=== PATIENT | female | born 1965 | race Caucasian/White ===

== ENCOUNTER → 2016-03-10 | Outpatient (CLI) | payer BC ==
[~2016-03-10] MED LIST: NORE0.35 PO; THYR60TA PO
[2016-03-10 09:06] LABS: Urine RBC None Seen /hpf (0 - 4)
[2016-03-10 09:52] LABS: Urine Bilirubin Negative (Negative); Urine Blood TRACE /uL (Negative); Urine Color Yellow (Yellow); Urine Glucose Normal (Normal); Urine Ketone Negative (Negative); Urine Nitrite Negative (Negative); Urine Squamous Epithelial Cell MANY /hpf (<5); Urine Urobilinogen Normal (Negative); Urine pH 6.5 (5.0-8.0)
[2016-03-10 10:19] LABS: BUN/Creatinine Ratio 12.3
[2016-03-10 10:38] LABS: Potassium 3.7 mmol/L (3.5-5.1)
[2016-03-10 12:45] LABS: Temperature: 22.3 C (20.0-25.0)
== END | disposition home or self-care (01) ==
LOC: LAB 06:37
PROVIDERS: ATTEND Internal Medicine
DX: E03.9 Hypothyroidism, unspecified (principal); E66.9 Obesity, unspecified; Z13.1 Encounter for screening for diabetes mellitus
CPT/HCPCS: 36415; 80048; 80061; 81001; 82607; 82746; 83036; 84439; 84443

== ENCOUNTER → 2016-03-10 | Outpatient (CLI) | payer BC | END | disposition home or self-care (01) | LOC: LAB 15:01 | PROVIDERS: ATTEND Internal Medicine | DX: E03.9 Hypothyroidism, unspecified (principal); E55.9 Vitamin D deficiency, unspecified | CPT/HCPCS: 82306 ==

== ENCOUNTER 2016-05-24 06:09 | Inpatient (IN) | payer BC ==
[2016-05-20 10:18] LABS: Urine Bilirubin Negative (Negative); Urine Blood TRACE /uL (Negative); Urine Color Yellow (Yellow); Urine Glucose Normal (Normal); Urine Ketone Negative (Negative); Urine Nitrite Negative (Negative); Urine RBC 24 /hpf (0 - 4); Urine Squamous Epithelial Cell MOD /hpf (<5); Urine Urobilinogen Normal (Negative)
[2016-05-20 10:28] LABS: INR 0.99 (0.9-1.15); Partial Thromboplastin Time 25.9 sec (22.64-33.71); Prothrombin Time 10.7 sec (9.37-12.3)
[2016-05-20 10:34] LABS: Basophils # (auto) 0 uL; Basophils % (auto) 0.6 % (0.0-2.0); Eosinophils # (auto) 0.2 uL; Eosinophils % (auto) 3.6 % (0.0-7.0); Hematocrit 45.4 % (36.0-46.0); Hemoglobin 15.8 g/dL (12.2-16.2); Lymphocytes # (auto) 1.6 uL; Lymphocytes % (auto) 31.4 % (10.0-50.0); Mean Corpuscular Hemoglobin 35.3 pg (28.0-32.0); Mean Corpuscular Hgb Conc. 34.8 g/dL (32.0-36.0); Mean Corpuscular Volume 101.5 fL (80.0-100.0); Monocytes # (auto) 0.5 uL; Monocytes % (auto) 10.3 % (0.0-12.0); Neutrophils # (auto) 2.8 uL; Neutrophils % (auto) 54.1 % (37.0-80.0); Platelet Count (auto) 291 10^3/uL (140-450); Red Cell Distribution Width 12.5 % (11.6-16.0); White Blood Cell 5.2 10^3/uL (4.4-10.8)
[2016-05-20 10:42] LABS: Albumin 3.5 g/dL (3.4-5.0); BUN/Creatinine Ratio 13.2; Bilirubin, Total 0.9 mg/dL (0.2-1.0); Calcium 8.7 mg/dL (8.5-10.1); Potassium 3.8 mmol/L (3.5-5.1); Total Protein 7.2 g/dL (6.4-8.2)
[~2016-05-24] VITALS: Ht 162.6 cm; Wt 112.4 kg
[2016-05-24] MEDS ORDERED: ROPIVACAINE 0.5% (5MG/ML) 20ML AMPULE IJ ONE (06:41)
[2016-05-24] MEDS ORDERED: BUPIVACAINE 0.25% INJ 50ML VIAL ONE (06:41)
[2016-05-24] MEDS ORDERED: BUPIVACAINE W/ EPINEPH 0.25% INJ 50ML MDV ONE (06:41)
[2016-05-24] MEDS ORDERED: ceFAZolin 1GM/50ML D5W 100 ML IV ONE (06:41)
[2016-05-24] MEDS ORDERED: ROCURONIUM 10MG/ML 10ML VIAL IV ONE (07:23)
[2016-05-24] MEDS ORDERED: cefTRIAXone SOD 1,000 MG VL ONE (07:31)
[2016-05-24] MEDS ORDERED: SUCCINYLCHOLINE CHLORIDE 20 MG/ML 10ML VIAL IV ONE (07:41)
[2016-05-24] MEDS ORDERED: fentaNYL CITRATE 100 MCG/2 ML VL ONE ×2 (07:42→08:46)
[2016-05-24] MEDS ORDERED: PROPOFOL 10 MG/ML 20 ML IV ONE (07:43)
[2016-05-24] MEDS ORDERED: KETOROLAC TROMETH 30 MG/ML 1ML VIAL IV ONE (07:43)
[2016-05-24] MEDS ORDERED: NEOSTIGMINE 1 MG/ML INJ (10mg/10ML VIAL) IV ONE (07:43)
[2016-05-24] MEDS ORDERED: GLYCOPYRROLATE 0.2 MG/ML 1ML VIAL IV ONE (07:43)
[2016-05-24] MEDS ORDERED: MIDAZOLAM HCL 1MG/1ML-2 ML VIAL ONE (07:45)
[2016-05-24] MEDS ORDERED: HYDROmorphone HCL 2 MG/ML VL ONE (08:46)
[2016-05-24] MEDS ORDERED: ePHEDrine SULFATE 50 MG/ML AMP IV PRN (10:45)
[2016-05-24] MEDS ORDERED: ONDANSETRON HCL 4 MG/2 ML VIAL IV ONE (10:45)
[2016-05-24] MEDS ORDERED: hydrALAZINE HCL 20 MG/ML VL IV PRN (10:45)
[2016-05-24] MEDS: LACTATED RINGER'S 1,000 ML IV SCH (10:47)
[2016-05-24] MEDS: HYDROmorphone HCL 2 MG/ML VL IV PRN ×5 (10:53→18:36)
[2016-05-24] MEDS ORDERED: MEPERIDINE HCL (25 MG/ML) 1ML VIAL ONE (10:55)
[2016-05-24] MEDS ORDERED: MEPERIDINE HCL (25 MG/ML) 1ML VIAL IV ONE (11:00)
[2016-05-24] MEDS ORDERED: HYDROmorphone HCL 2 MG/ML VL IV PRN (11:00)
[2016-05-24] MEDS ORDERED: TEMAZEPAM 15 MG CAP PO PRN (11:00)
[2016-05-24] MEDS ORDERED: ceFAZolin 1GM/50ML D5W 50 ML IV SCH (12:00)
[2016-05-24] MEDS: SODIUM CHLOR 0.9% PF (SALINE LOCK) 10ML VIAL IV SCH ×2 (14:00→21:38)
[2016-05-24] MEDS ORDERED: cefTRIAXone 1GM/50ML D5W 50 ML IV ONE (14:15)
[2016-05-24 14:16] VITALS: BP 132/83
[2016-05-24] MEDS ORDERED: oxyCODONE ER 10 MG TAB PO ONE (14:30)
[2016-05-24] MEDS ORDERED: ENOXAPARIN SOD 40 MG/0.4 ML SYRINGE SC ONE (14:30)
[2016-05-24] MEDS: ceFAZolin 1GM/50ML D5W 50 ML IV SCH ×2 (15:08→21:38)
[2016-05-24 21:35] VITALS: BP 137/70
[2016-05-24] MEDS: DOCUSATE SOD 100 MG CAP PO SCH (21:39)
[2016-05-24] MEDS: oxyCODONE ER 10 MG TAB PO SCH (21:39)
[2016-05-24] MEDS: ONDANSETRON HCL 4 MG/2 ML VIAL IV PRN (22:17)
[2016-05-25] MEDS: ceFAZolin 1GM/50ML D5W 50 ML IV SCH (02:34)
[2016-05-25] MEDS: ACETAMINOPHEN 325 MG TAB PO PRN (02:35)
[2016-05-25 04:35] VITALS: BP 124/71
[2016-05-25] MEDS: HYDROmorphone HCL 2 MG/ML VL IV PRN ×4 (05:15→21:00)
[2016-05-25] MEDS: SODIUM CHLOR 0.9% PF (SALINE LOCK) 10ML VIAL IV SCH ×3 (06:05→21:22)
[2016-05-25 07:50] LABS: Hematocrit 38.4 % (36.0-46.0)
[2016-05-25 09:00] VITALS: BP 118/69
[2016-05-25] MEDS: LACTATED RINGER'S 1,000 ML IV SCH (09:19)
[2016-05-25] MEDS: cefTRIAXone 1GM/50ML D5W 50 ML IV SCH (09:20)
[2016-05-25] MEDS: HYDROcodone-ACET 10/325MG TAB PO PRN ×2 (09:20→17:48)
[2016-05-25] MEDS: oxyCODONE ER 10 MG TAB PO SCH ×2 (10:00→21:22)
[2016-05-25] MEDS: DOCUSATE SOD 100 MG CAP PO SCH ×2 (10:14→21:22)
[2016-05-25] MEDS: THYROID 60 MG TAB PO SCH (10:14)
[2016-05-25] MEDS: ENOXAPARIN SOD 40 MG/0.4 ML SYRINGE SC SCH (10:16)
[2016-05-25 17:00] VITALS: BP 144/81
[2016-05-25 22:00] VITALS: BP 147/75
[2016-05-26] MEDS: HYDROmorphone HCL 2 MG/ML VL IV PRN ×6 (01:37→21:21)
[2016-05-26] MEDS: ACETAMINOPHEN 325 MG TAB PO PRN ×3 (04:59→20:31)
[2016-05-26 05:00] VITALS: BP 113/65
[2016-05-26] MEDS: SODIUM CHLOR 0.9% PF (SALINE LOCK) 10ML VIAL IV SCH ×3 (05:16→21:21)
[2016-05-26 07:39] LABS: Hematocrit 39.2 % (36.0-46.0); Hemoglobin 13.4 g/dL (12.2-16.2)
[2016-05-26 08:00] VITALS: BP 133/70
[2016-05-26] MEDS: ONDANSETRON HCL 4 MG/2 ML VIAL IV PRN (08:44)
[2016-05-26 09:00] VITALS: BP 133/70
[2016-05-26] MEDS: ENOXAPARIN SOD 40 MG/0.4 ML SYRINGE SC SCH (09:26)
[2016-05-26] MEDS: DOCUSATE SOD 100 MG CAP PO SCH ×2 (09:26→21:21)
[2016-05-26] MEDS: THYROID 60 MG TAB PO SCH (09:26)
[2016-05-26] MEDS: cefTRIAXone 1GM/50ML D5W 50 ML IV SCH (09:26)
[2016-05-26] MEDS: oxyCODONE ER 10 MG TAB PO SCH ×2 (09:26→21:24)
[2016-05-26 13:00] VITALS: BP 137/74
[2016-05-26 17:00] VITALS: BP 138/86
[2016-05-26 22:11] VITALS: BP 124/72
[2016-05-27] MEDS: ACETAMINOPHEN 325 MG TAB PO PRN (04:31)
[2016-05-27 05:00] VITALS: BP 131/77
[2016-05-27] MEDS: SODIUM CHLOR 0.9% PF (SALINE LOCK) 10ML VIAL IV SCH ×2 (06:04→14:00)
[2016-05-27] MEDS: HYDROmorphone HCL 2 MG/ML VL IV PRN ×3 (06:04→15:27)
[2016-05-27 08:00] VITALS: BP 129/65
[2016-05-27 09:00] VITALS: BP 129/65
[2016-05-27 09:13] LABS: Hematocrit 35.4 % (36.0-46.0); Hemoglobin 12.2 g/dL (12.2-16.2)
[2016-05-27] MEDS: ENOXAPARIN SOD 40 MG/0.4 ML SYRINGE SC SCH (09:21)
[2016-05-27] MEDS: cefTRIAXone 1GM/50ML D5W 50 ML IV SCH (09:21)
[2016-05-27] MEDS: DOCUSATE SOD 100 MG CAP PO SCH (09:21)
[2016-05-27] MEDS: THYROID 60 MG TAB PO SCH (09:21)
[2016-05-27] MEDS: oxyCODONE ER 10 MG TAB PO SCH (09:22)
[2016-05-27 13:00] VITALS: BP 141/87
[2016-05-27 14:20] VITALS: BP 129/65
== END 2016-05-27 16:45 | disposition home or self-care (01) | DRG 470 ==
LOC: SUR 06:09 → WEST WING 06:10
PROVIDERS: ADMIT Orthopaedic Surgery; ATTEND Internal Medicine
PROC: 0SRC0L9 Replacement of Right Knee Joint with Medial Unicondylar Synthetic Substitute, Cemented, Open Approach (ICD-10-PCS; principal; 2016-05-24 07:43)
DX: M17.11 Unilateral primary osteoarthritis, right knee (principal); N39.0 Urinary tract infection, site not specified; Z68.41 Body mass index [BMI] 40.0-44.9, adult; E03.9 Hypothyroidism, unspecified; E66.9 Obesity, unspecified; Z88.1 Allergy status to other antibiotic agents; Z88.2 Allergy status to sulfonamides
CPT/HCPCS: 36415; 73562; 80053; 81001; 84702; 85014; 85018; 85025; 85610; 85730; 86850; 86900; 86901; 97116; 97530; J0330; J0690; J0696; J1885; J2250; J2405; J2704; J3490

== ENCOUNTER → 2016-11-04 | Outpatient (CLI) | payer BC ==
[2016-11-04 08:40] LABS: Aspartate Aminotransferase 33 U/L (15-37)
[2016-11-04 09:35] LABS: Urine Bilirubin Negative (Negative); Urine Blood Negative /uL (Negative); Urine Color Yellow (Yellow); Urine Glucose Normal (Normal); Urine Ketone Negative (Negative); Urine Mucus FEW (None Seen); Urine Nitrite Negative (Negative); Urine RBC 4 /hpf (0 - 4); Urine Sperm PRESENT /hpf (None Seen); Urine Squamous Epithelial Cell MOD /hpf (<5); Urine Urobilinogen Normal (Negative); Urine pH 6.5 (5.0-8.0)
[2016-11-05 08:07] LABS: Thyroid Peroxidase (TPO) Ab 9 IU/mL (0-34)
[2016-11-05 16:07] LABS: Sjogren's Anti-SS-A Antibody <0.2 AI (0.0-0.9)
== END | disposition home or self-care (01) ==
LOC: LAB 07:54
PROVIDERS: ATTEND Internal Medicine
DX: E03.9 Hypothyroidism, unspecified (principal); M25.50 Pain in unspecified joint
CPT/HCPCS: 36415; 81001; 82550; 84439; 84443; 84450; 84460; 86225; 86235

== ENCOUNTER → 2017-05-02 | Outpatient (CLI) | payer BC ==
[2017-05-02 16:50] LABS: Eosinophils # (auto) 0.2 uL; Lymphocytes # (auto) 1.5 uL; Monocytes # (auto) 0.6 uL; Red Cell Distribution Width 12.8 % (11.8-14.3)
[2017-05-02 16:57] LABS: Basophils # (auto) 0.1 uL; Basophils % (auto) 1.8 % (0.0-2.0); Hematocrit 44.4 % (36.0-46.0); Hemoglobin 15.4 g/dL (12.2-16.2); Lymphocytes % (auto) 30.3 % (10.0-50.0); Mean Corpuscular Hemoglobin 35.8 pg (28.0-32.0); Mean Corpuscular Hgb Conc. 34.5 g/dL (32.0-36.0); Mean Corpuscular Volume 103.7 fL (80.0-100.0); Monocytes % (auto) 11.6 % (0.0-12.0); Neutrophils # (auto) 2.6 uL; Neutrophils % (auto) 52.3 % (37.0-80.0); Nucleated Red Blood Cells % 0.2 %; Platelet Count (auto) 234 10^3/uL (140-450); Red Blood Cells 4.28 10^6/uL (4.0-5.20)
[2017-05-02 17:43] LABS: INR 1.01 (0.9-1.15); Partial Thromboplastin Time 26.6 sec (22.64-33.71)
[2017-05-02 18:15] LABS: Albumin 3.4 g/dL (3.4-5.0); BUN/Creatinine Ratio 13.2; Calcium 8.6 mg/dL (8.5-10.1); Potassium 3.9 mmol/L (3.5-5.1)
[2017-05-02 18:19] LABS: Bilirubin, Total 0.9 mg/dL (0.2-1.0); Total Protein 6.9 g/dL (6.4-8.2)
== END | disposition home or self-care (01) ==
LOC: LAB 15:49
PROVIDERS: ATTEND Internal Medicine
DX: L73.9 Follicular disorder, unspecified (principal); E03.9 Hypothyroidism, unspecified
CPT/HCPCS: 36415; 80053; 84439; 84443; 85025; 85610; 85652; 85730; 87081

== ENCOUNTER 2017-09-01 09:31 | Day surgery (SDC) | payer BC ==
[2017-08-28 15:02] LABS: Basophils # (auto) 0.1 uL; Basophils % (auto) 1.1 % (0.0-2.0); Eosinophils # (auto) 0.2 uL; Eosinophils % (auto) 4.5 % (0.0-7.0); Hematocrit 45.3 % (36.0-46.0); Hemoglobin 15.8 g/dL (12.2-16.2); Lymphocytes # (auto) 1.8 uL; Lymphocytes % (auto) 36.8 % (10.0-50.0); Mean Corpuscular Hemoglobin 36.1 pg (28.0-32.0); Mean Corpuscular Hgb Conc. 34.8 g/dL (32.0-36.0); Mean Corpuscular Volume 103.6 fL (80.0-100.0); Monocytes # (auto) 0.6 uL; Monocytes % (auto) 11.4 % (0.0-12.0); Neutrophils # (auto) 2.3 uL; Neutrophils % (auto) 46.2 % (37.0-80.0); Platelet Count (auto) 227 10^3/uL (140-450); Red Blood Cells 4.37 10^6/uL (4.0-5.20); Red Cell Distribution Width 13.2 % (11.8-14.3)
[2017-08-28 15:14] LABS: Urine Bacteria FEW /hpf (None Seen); Urine Blood Negative /uL (Negative); Urine Specific Gravity 1.009 (1.001-1.035); Urine WBC 34 /hpf (0 - 5)
[2017-08-28 15:24] LABS: INR 0.99 (0.9-1.15); Partial Thromboplastin Time 26.6 sec (23.78-33.04); Prothrombin Time 10.6 sec (9.27-12.13)
[2017-08-28 15:30] LABS: Albumin 3.5 g/dL (3.4-5.0); BUN/Creatinine Ratio 14.1; Bilirubin, Total 0.8 mg/dL (0.2-1.0); Calcium 8.6 mg/dL (8.5-10.1); Potassium 3.5 mmol/L (3.5-5.1); Total Protein 7.3 g/dL (6.4-8.2)
[~2017-09-01] VITALS: Ht 160 cm; Wt 95.3 kg
[2017-09-01] MEDS ORDERED: MEPERIDINE HCL (50 MG/ML) 1 ML VIAL IV ONE (09:32)
[2017-09-01] MEDS ORDERED: PROPOFOL 10 MG/ML 20 ML IV ONE (09:32)
[2017-09-01] MEDS ORDERED: KETOROLAC TROMETH 30 MG/ML 1ML VIAL IV ONE (09:32)
[2017-09-01] MEDS ORDERED: MIDAZOLAM HCL 1MG/1ML-2 ML VIAL IV ONE (09:32)
[2017-09-01] MEDS ORDERED: ceFAZolin 1 GM/50ml D5W BAG /AE IV ONE (09:32)
[2017-09-01] MEDS ORDERED: METOCLOPRAMIDE HCL 5MG/ml INJ 2ml VIAL IV ONE ×2 (09:32)
[2017-09-01] MEDS ORDERED: ceFAZolin 1GM/50ML 50 ML IV ONE (10:34)
[2017-09-01] MEDS ORDERED: BUPIVACAINE W/ EPINEPH 0.25% INJ 50ML MDV ONE (12:50)
[2017-09-01] MEDS ORDERED: BUPIVACAINE HCL 0 ML ONE (12:50)
[2017-09-01] MEDS ORDERED: MEPERIDINE HCL (25 MG/ML) 1ML VIAL ONE (14:39)
[2017-09-01] MEDS ORDERED: MEPERIDINE HCL (25 MG/ML) 1ML VIAL IV ONE (14:45)
[2017-09-01 15:15] VITALS: BP 133/77
== END 2017-09-01 15:15 | disposition home or self-care (01) ==
LOC: SUR 09:31
PROVIDERS: ATTEND Orthopaedic Surgery
DX: R22.41 Localized swelling, mass and lump, right lower limb (principal); E03.9 Hypothyroidism, unspecified; E66.01 Morbid (severe) obesity due to excess calories; Z68.37 Body mass index [BMI] 37.0-37.9, adult; Z96.651 Presence of right artificial knee joint; Z98.890 Other specified postprocedural states; Z88.2 Allergy status to sulfonamides; Z88.8 Allergy status to other drugs, medicaments and biological substances
CPT/HCPCS: 27337; 36415; 80053; 81001; 84702; 85025; 85610; 85730; 87070; 87075; 87205; J0690; J2175; J1885; J2250; J2704; J3490

== ENCOUNTER → 2017-10-11 | Outpatient (CLI) | payer BC ==
[2017-10-11 08:59] LABS: Basophils # (auto) 0.1 uL; Basophils % (auto) 1.1 % (0.0-2.0); Eosinophils # (auto) 0.2 uL; Lymphocytes # (auto) 1.8 uL; Monocytes # (auto) 0.6 uL; Neutrophils # (auto) 2.5 uL; Neutrophils % (auto) 48.9 % (37.0-80.0); Nucleated Red Blood Cells % 0.1 %; Red Blood Cells 4.73 10^6/uL (4.0-5.20)
[2017-10-11 09:00] LABS: Eosinophils % (auto) 4.4 % (0.0-7.0); Hematocrit 48.5 % (36.0-46.0); Hemoglobin 16.9 g/dL (12.2-16.2); Mean Corpuscular Hemoglobin 35.8 pg (28.0-32.0); Mean Corpuscular Hgb Conc. 34.9 g/dL (32.0-36.0); Mean Corpuscular Volume 102.5 fL (80.0-100.0); Monocytes % (auto) 10.6 % (0.0-12.0); Platelet Count (auto) 256 10^3/uL (140-450); Red Cell Distribution Width 12.9 % (11.8-14.3); White Blood Cell 5.2 10^3/uL (4.4-10.8)
[2017-10-11 09:14] LABS: INR 0.99 (0.9-1.15); Prothrombin Time 10.6 sec (9.27-12.13)
[2017-10-11 09:23] LABS: % Iron Saturation 39.8 % (15-50)
[2017-10-11 09:25] LABS: Albumin 3.6 g/dL (3.4-5.0); Calcium 8.7 mg/dL (8.5-10.1); Potassium 3.5 mmol/L (3.5-5.1); Total Protein 7.6 g/dL (6.4-8.2)
[2017-10-11 09:28] LABS: Free T4 (Free Thyroxine) 0.64 ng/dL (0.89-1.76)
[2017-10-11 09:29] LABS: Ferritin 116.2 ng/mL (10-322); Follicle Stimulating Hormone 13.04 IU/L (SEE BELOW)
[2017-10-12 10:03] LABS: Hepatitis B Surface Antibody Negative
[2017-10-12 10:10] LABS: Immunoglobulin G, Serum 1172 mg/dL (700-1600)
[2017-10-12 10:39] LABS: Hepatitis A Total Antibody Negative
[2017-10-12 11:37] LABS: Hepatitis B Surface Antigen Negative (Negative); Hepatitis C Antibody Negative (Negative)
== END | disposition home or self-care (01) ==
LOC: LAB 07:11
PROVIDERS: ATTEND Internal Medicine
DX: E66.9 Obesity, unspecified (principal); R74.8 Abnormal levels of other serum enzymes; R21 Rash and other nonspecific skin eruption; E03.9 Hypothyroidism, unspecified
CPT/HCPCS: 36415; 80053; 80061; 82105; 82390; 82550; 82607; 82728; 82784; 83001; 83540; 83550; 84439; 84443; 85025; 85610; 86038; 86706; 86708; 86803; 87340

== ENCOUNTER 2017-10-16 08:10 | Emergency (ER) | payer BC, OTHER ==
[~2017-10-16] VITALS: Ht 160 cm; Wt 94.3 kg
[2017-10-16 09:05] VITALS: BP 156/95
[2017-10-16] MEDS ORDERED: KETOROLAC TROMETH 60MG/2ML VIAL IM ONE (10:15)
== END 2017-10-16 11:16 | disposition home or self-care (01) ==
LOC: ER 08:10
DX: S83.92XA Sprain of unspecified site of left knee, initial encounter (principal); Z88.1 Allergy status to other antibiotic agents; Z88.2 Allergy status to sulfonamides; Z87.440 Personal history of urinary (tract) infections; X58.XXXA Exposure to other specified factors, initial encounter; Y93.89 Activity, other specified; Y92.89 Other specified places as the place of occurrence of the external cause; Y99.8 Other external cause status
CPT/HCPCS: 73700; 96372; 99284; J1885

== ENCOUNTER → 2018-03-20 | Outpatient (CLI) | payer BC ==
[2018-03-20 07:28] LABS: Basophils # (auto) 0 uL; Eosinophils # (auto) 0.2 uL; Monocytes # (auto) 0.5 uL; Monocytes % (auto) 10.3 % (0.0-12.0)
[2018-03-20 07:30] LABS: Eosinophils % (auto) 5.4 % (0.0-7.0); Hematocrit 45.3 % (36.0-46.0); Lymphocytes # (auto) 1.7 uL; Mean Corpuscular Hemoglobin 36.4 pg (28.0-32.0); Mean Corpuscular Hgb Conc. 35.3 g/dL (32.0-36.0); Mean Corpuscular Volume 103.1 fL (80.0-100.0); Neutrophils % (auto) 45.3 % (37.0-80.0); Platelet Count (auto) 230 10^3/uL (140-450); Red Blood Cells 4.39 10^6/uL (4.0-5.20); Red Cell Distribution Width 12.9 % (11.8-14.3); White Blood Cell 4.5 10^3/uL (4.4-10.8)
[2018-03-20 07:39] LABS: Urine Bacteria FEW /hpf (None Seen); Urine Blood Negative /uL (Negative); Urine Mucus FEW (None Seen); Urine Specific Gravity 1.009 (1.001-1.035); Urine WBC 37 /hpf (0 - 5)
[2018-03-20 07:45] LABS: Albumin 3.3 g/dL (3.4-5.0); Calcium 8.2 mg/dL (8.5-10.1); Potassium 3.6 mmol/L (3.5-5.1)
[2018-03-20 07:48] LABS: BUN/Creatinine Ratio 8.2; Bilirubin, Total 0.6 mg/dL (0.2-1.0); Total Protein 6.7 g/dL (6.4-8.2)
[2018-03-20 08:03] LABS: INR 0.97 (0.9-1.15); Partial Thromboplastin Time 25.6 sec (23.78-33.04); Prothrombin Time 10.4 sec (9.27-12.13)
== END | disposition home or self-care (01) ==
LOC: LAB 07:18
PROVIDERS: ATTEND Internal Medicine
DX: Z01.818 Encounter for other preprocedural examination (principal)
CPT/HCPCS: 36415; 80053; 81001; 84439; 84443; 85025; 85610; 85730

== ENCOUNTER → 2018-03-26 | Day surgery (SDC) | payer OTHER ==
[~2018-03-26] VITALS: Ht 160 cm; Wt 96.2 kg
[~2018-03-26] MED LIST changes: +BUPIVACAINE 0.25% INJ 50ML VIAL ONE; +GLYCOPYRROLATE 0.2 MG/ML 1ML VIAL ONE; +HYDROmorphone HCL 2 MG/ML VL IV PRN; +KETOROLAC TROMETH 30 MG/ML 1ML VIAL ONE; +LIDOCAINE 1% HCL (LOCAL ANESTH.) INJ 20ML MDV ONE; +LIDOCAINE 1% INJ PF 5ML AMP ONE; +MEPERIDINE HCL (25 MG/ML) 1ML VIAL IM ONE; +MEPERIDINE HCL (25 MG/ML) 1ML VIAL ONE; +METOCLOPRAMIDE HCL 5MG/ml INJ 2ml VIAL ONE; +MIDAZOLAM HCL 1MG/1ML-2 ML VIAL ONE; +NALOXONE HCL 0.4 MG/ML VIAL IV PRN; +NEOSTIGMINE 1 MG/ML INJ (10mg/10ML VIAL) ONE; +ONDANSETRON HCL 4 MG/2 ML VIAL IV ONE; +PROPOFOL 10 MG/ML 20 ML IV ONE; +ROCURONIUM 10MG/ML 10ML VIAL IV ONE; +SUCCINYLCHOLINE CHLORIDE 20 MG/ML 10ML VIAL IV ONE; +ceFAZolin 1GM/50ML 100 ML IV ONE; +fentaNYL CITRATE 100 MCG/2 ML VL ONE; +methylPREDNISolone ACETATE 80 MG/ML VL ONE
[2018-03-26 08:56] VITALS: BP 133/77
== END | disposition home or self-care (01) ==
LOC: SUR 06:12
PROVIDERS: ATTEND Orthopaedic Surgery Adult Reconstructive Orthopaedic Surgery
DX: S83.242A Other tear of medial meniscus, current injury, left knee, initial encounter (principal); M17.12 Unilateral primary osteoarthritis, left knee; E66.9 Obesity, unspecified; Z68.37 Body mass index [BMI] 37.0-37.9, adult; Z88.1 Allergy status to other antibiotic agents; Z88.2 Allergy status to sulfonamides; Z90.49 Acquired absence of other specified parts of digestive tract; Z96.652 Presence of left artificial knee joint; X58.XXXA Exposure to other specified factors, initial encounter; Y93.89 Activity, other specified; Y92.89 Other specified places as the place of occurrence of the external cause; Y99.8 Other external cause status
CPT/HCPCS: 29881; 36415; 84702; J0330; J0690; J1040; J1885; J2001; J2175; J2250; J2704; J2765; J3010; J3490

== ENCOUNTER → 2019-01-24 | Outpatient (CLI) | payer BC ==
[~2019-01-24] MED LIST changes: -BUPIVACAINE 0.25% INJ 50ML VIAL ONE; -GLYCOPYRROLATE 0.2 MG/ML 1ML VIAL ONE; -HYDROmorphone HCL 2 MG/ML VL IV PRN; -KETOROLAC TROMETH 30 MG/ML 1ML VIAL ONE; -LIDOCAINE 1% HCL (LOCAL ANESTH.) INJ 20ML MDV ONE; -LIDOCAINE 1% INJ PF 5ML AMP ONE; -MEPERIDINE HCL (25 MG/ML) 1ML VIAL IM ONE; -MEPERIDINE HCL (25 MG/ML) 1ML VIAL ONE; -METOCLOPRAMIDE HCL 5MG/ml INJ 2ml VIAL ONE; -MIDAZOLAM HCL 1MG/1ML-2 ML VIAL ONE; -NALOXONE HCL 0.4 MG/ML VIAL IV PRN; -NEOSTIGMINE 1 MG/ML INJ (10mg/10ML VIAL) ONE; -ONDANSETRON HCL 4 MG/2 ML VIAL IV ONE; -PROPOFOL 10 MG/ML 20 ML IV ONE; -ROCURONIUM 10MG/ML 10ML VIAL IV ONE; -SUCCINYLCHOLINE CHLORIDE 20 MG/ML 10ML VIAL IV ONE; -ceFAZolin 1GM/50ML 100 ML IV ONE; -fentaNYL CITRATE 100 MCG/2 ML VL ONE; -methylPREDNISolone ACETATE 80 MG/ML VL ONE
[2019-01-24 08:27] LABS: Follicle Stimulating Hormone 13.3 IU/L (SEE BELOW)
== END | disposition home or self-care (01) ==
LOC: LAB 07:23
DX: N95.1 Menopausal and female climacteric states (principal)
CPT/HCPCS: 82670; 83001; 83002; 84144

== ENCOUNTER 2019-02-14 08:24 | Emergency (ER) | payer BC ==
[~2019-02-14] VITALS: Ht 160 cm; Wt 92.1 kg
[2019-02-14 08:50] VITALS: BP 111/61
[2019-02-14 08:54] LABS: Basophils # (auto) 0.1 uL; Eosinophils # (auto) 0.1 uL; Monocytes # (auto) 0.4 uL; Neutrophils # (auto) 1.2 uL; Nucleated Red Blood Cells % 0.2 %; White Blood Cell 2.7 10^3/uL (4.4-10.8)
[2019-02-14 08:55] LABS: Basophils % (auto) 2.6 % (0.0-2.0); Eosinophils % (auto) 3.1 % (0.0-7.0); Hematocrit 44.3 % (36.0-46.0); Hemoglobin 15.3 g/dL (12.2-16.2); Lymphocytes # (auto) 0.9 uL; Lymphocytes % (auto) 34.3 % (10.0-50.0); Mean Corpuscular Hemoglobin 35.8 pg (28.0-32.0); Mean Corpuscular Hgb Conc. 34.6 g/dL (32.0-36.0); Mean Corpuscular Volume 103.5 fL (80.0-100.0); Monocytes % (auto) 14.5 % (0.0-12.0); Neutrophils % (auto) 45.5 % (37.0-80.0); Platelet Count (auto) 189 10^3/uL (140-450); Red Blood Cells 4.28 10^6/uL (4.0-5.20); Red Cell Distribution Width 12.5 % (11.8-14.3)
[2019-02-14 09:10] LABS: Albumin 2.9 g/dL (3.4-5.0); Calcium 8.4 mg/dL (8.5-10.1); Potassium 3.8 mmol/L (3.5-5.1)
[2019-02-14 09:15] LABS: BUN/Creatinine Ratio 8.7; Bilirubin, Total 0.7 mg/dL (0.2-1.0); Total Protein 6.7 g/dL (6.4-8.2)
[2019-02-14] MEDS ORDERED: SODIUM CHLORIDE 0.9% 1,000 ML IV ONE ×2 (09:38)
== END 2019-02-14 11:57 | disposition home or self-care (01) ==
LOC: ER 08:24
DX: E86.0 Dehydration (principal); R42 Dizziness and giddiness; R19.7 Diarrhea, unspecified; E07.9 Disorder of thyroid, unspecified
CPT/HCPCS: 36415; 70450; 71046; 80053; 85025; 96360; 96361; 99284; J7030

== ENCOUNTER → 2019-07-24 | Outpatient (CLI) | payer BC ==
[2019-07-24 08:38] LABS: Basophils # (auto) 0.1 10 ^3/uL (0-0.2); Eosinophils # (auto) 0.2 10 ^3/uL (0-0.8); Lymphocytes # (auto) 1.7 10 ^3/uL (0.4-5.4); Mean Corpuscular Volume 101.1 fL (80.0-100.0); Monocytes # (auto) 0.6 10 ^3/uL (0-1.3); White Blood Cell 4.9 10^3/uL (4.4-10.8)
[2019-07-24 08:40] LABS: Basophils % (auto) 1.1 % (0.0-2.0); Eosinophils % (auto) 3.9 % (0.0-7.0); Hematocrit 45.9 % (36.0-46.0); Lymphocytes % (auto) 35.2 % (10.0-50.0); Mean Corpuscular Hemoglobin 35.3 pg (28.0-32.0); Mean Corpuscular Hgb Conc. 34.9 g/dL (32.0-36.0); Monocytes % (auto) 12.7 % (0.0-12.0); Neutrophils # (auto) 2.3 10 ^3/uL (1.6-8.6); Neutrophils % (auto) 47.1 % (37.0-80.0); Nucleated Red Blood Cells % 0.1 %; Platelet Count (auto) 256 10^3/uL (140-450); Red Blood Cells 4.54 10^6/uL (4.0-5.20); Red Cell Distribution Width 13.4 % (11.8-14.3)
[2019-07-24 08:53] LABS: Potassium 3.6 mmol/L (3.5-5.1)
[2019-07-24 09:03] LABS: Albumin 3.4 g/dL (3.4-5.0); BUN/Creatinine Ratio 11.3; Calcium 8.6 mg/dL (8.5-10.1)
== END | disposition home or self-care (01) ==
LOC: LAB 07:37
PROVIDERS: ATTEND Internal Medicine
DX: D72.819 Decreased white blood cell count, unspecified (principal); R00.2 Palpitations
CPT/HCPCS: 36415; 80053; 80061; 84439; 84443; 85025

== ENCOUNTER → 2019-09-09 | Outpatient (CLI) | payer BC ==
[~2019-09-09] MED LIST changes: -NORE0.35 PO; +NORE0.3532 PO
[2019-09-09 07:28] LABS: Magnesium 2.3 mg/dL (1.6-2.6)
== END | disposition home or self-care (01) ==
LOC: LAB 06:58
PROVIDERS: ATTEND Internal Medicine
DX: R00.2 Palpitations (principal); E03.9 Hypothyroidism, unspecified; M79.10 Myalgia, unspecified site
CPT/HCPCS: 36415; 82550; 83735; 84439; 84443; 85379

== ENCOUNTER → 2020-05-04 | Outpatient (CLI) | payer BC ==
[~2020-05-04] MED LIST changes: +METO25TA93 PO
== END | disposition home or self-care (01) ==
LOC: LAB 09:40
PROVIDERS: ATTEND Internal Medicine
DX: R00.2 Palpitations (principal)
CPT/HCPCS: 36415; 85379

== ENCOUNTER 2020-05-05 13:25 | Inpatient (IN) | payer BC ==
[~2020-05-05] VITALS: Ht 161.3 cm; Wt 107.0 kg
[~2020-05-05 13:25] MED LIST changes: -METO25TA93 PO
[2020-05-05 13:54] LABS: Basophils # (auto) 0.1 10 ^3/uL (0-0.2); Eosinophils # (auto) 0.2 10 ^3/uL (0-0.8); Eosinophils % (auto) 3.5 % (0.0-7.0); Lymphocytes # (auto) 2.5 10 ^3/uL (0.4-5.4); Monocytes # (auto) 0.6 10 ^3/uL (0-1.3)
[2020-05-05 13:56] LABS: Basophils % (auto) 0.9 % (0.0-2.0); Hematocrit 45.4 % (36.0-46.0); Hemoglobin 16.1 g/dL (12.2-16.2); Lymphocytes % (auto) 42.4 % (10.0-50.0); Mean Corpuscular Hemoglobin 36.7 pg (28.0-32.0); Mean Corpuscular Hgb Conc. 35.5 g/dL (32.0-36.0); Mean Corpuscular Volume 103.3 fL (80.0-100.0); Neutrophils # (auto) 2.5 10 ^3/uL (1.6-8.6); Neutrophils % (auto) 43.2 % (37.0-80.0); Nucleated Red Blood Cells % 0.1 %; Platelet Count (auto) 218 10^3/uL (140-450); Red Blood Cells 4.39 10^6/uL (4.0-5.20); Red Cell Distribution Width 12.9 % (11.8-14.3); White Blood Cell 5.8 10^3/uL (4.4-10.8)
[2020-05-05 14:22] LABS: Albumin 3.5 g/dL (3.4-5.0); Anion Gap 10 (5-15); Blood Urea Nitrogen 8 mg/dL (7-18); Calcium 8.4 mg/dL (8.5-10.1); Carbon Dioxide 22 mmol/L (21-32); Chloride 110 mmol/L (98-107); Glucose 93 mg/dL (74-106); Magnesium 2.4 mg/dL (1.6-2.6); Potassium 3.8 mmol/L (3.5-5.1); Sodium 142 mmol/L (136-145)
[2020-05-05 14:29] LABS: Alanine Aminotransferase 36 U/L (13-56); Alkaline Phosphatase 99 U/L (45-117); Aspartate Aminotransferase 43 U/L (15-37); BUN/Creatinine Ratio 10.1; Bilirubin, Total 0.8 mg/dL (0.2-1.0); GFR African American 98 mL/min; GFR Non-African American 81 mL/min; Total Protein 7.2 g/dL (6.4-8.2)
[2020-05-05 15:43] LABS: Urine Bacteria NONE SEEN /hpf (None Seen); Urine Blood Negative /uL (Negative); Urine Specific Gravity 1.003 (1.001-1.035); Urine WBC 6 /hpf (0 - 5)
[2020-05-05] MEDS ORDERED: IOHEXOL 350 MG/ML 100ML IJ ONE ×2 (17:17→17:19)
[2020-05-05] MEDS ORDERED: NITROGLYCERIN 0.4 MG SL TAB SL PRN (18:30)
[2020-05-05] MEDS ORDERED: ONDANSETRON HCL 4 MG/2 ML VIAL IV PRN (18:30)
[2020-05-05] MEDS ORDERED: MORPHINE SULF INJ 2 MG/ML SYRINGE 1ML IV PRN ×2 (18:30)
[2020-05-05] MEDS ORDERED: HYDROcodone-ACET 5/325MG TAB PO PRN (18:30)
[2020-05-05 22:00] VITALS: BP 151/79
[2020-05-05 22:48] VITALS: BP 151/78
[2020-05-05] MEDS ORDERED: METO25TA93 PO (23:15)
[2020-05-06 00:05] VITALS: BP 151/79
[2020-05-06 04:59] VITALS: BP 141/74
[2020-05-06] MEDS: THYROID 60 MG TAB PO SCH (07:23)
[2020-05-06] MEDS ORDERED: ADENOSINE 79 MG in GIVE UN-DILUTED 0 ML IV STA (08:17)
[2020-05-06 09:00] VITALS: BP 124/78
[2020-05-06] MEDS: FAMOTIDINE 20 MG TAB PO SCH (10:00)
[2020-05-06 13:00] VITALS: BP 126/74
[2020-05-06] MEDS ORDERED: IODIXANOL 320MG/ML 100ML BTL IV ONE (13:11)
[2020-05-06] MEDS ORDERED: LIDOCAINE 2%HCL (LOCAL ANESTH.) INJ 20ML MDV ONE (13:11)
[2020-05-06] MEDS ORDERED: ANGIOMAX 250 MG VIAL IV ONE (13:38)
[2020-05-06] MEDS ORDERED: VERAPAMIL 2.5MG/ML INJ 2ML VIAL IV ONE (13:38)
[2020-05-06] MEDS ORDERED: HEPARIN SODIUM (PORCINE) 5000 UNITS/ML 1ML VIAL ONE (13:38)
[2020-05-06] MEDS ORDERED: SODIUM CHL 0.9% 0 ML ONE (13:39)
[2020-05-06] MEDS ORDERED: fentaNYL CITRATE 100 MCG/2 ML VL ONE (13:39)
[2020-05-06] MEDS ORDERED: MIDAZOLAM HCL 1MG/1ML-2 ML VIAL ONE (13:39)
[2020-05-06] MEDS ORDERED: diphenhdrAMINE HCL 50 MG/1 ML VL ONE (14:20)
[2020-05-06] MEDS ORDERED: MEPERIDINE HCL (25 MG/ML) 1ML VIAL ONE (14:42)
[2020-05-06 14:44] LABS: INR 1.08 (0.9-1.15); Partial Thromboplastin Time 26.2 sec (23.0-31.2)
[2020-05-06] MEDS ORDERED: MEPERIDINE HCL (25 MG/ML) 1ML VIAL IV ONE (14:45)
[2020-05-06 16:44] VITALS: BP 125/70
[2020-05-06] MEDS: ACETAMINOPHEN 500 MG TAB PO PRN (17:39)
[2020-05-06] MEDS ORDERED: ASPirin 81 mg TAB PO ONE (20:30)
[2020-05-06 22:00] VITALS: BP 152/79
[2020-05-07 05:00] VITALS: BP 132/71
[2020-05-07] MEDS: THYROID 60 MG TAB PO SCH (05:23)
[2020-05-07] MEDS ORDERED: LORazepam 2MG/ML-1ML VIAL IV ONE (08:00)
[2020-05-07 08:30] VITALS: BP 123/76
[2020-05-07] MEDS: FAMOTIDINE 20 MG TAB PO SCH (09:35)
[2020-05-07] MEDS: ACETAMINOPHEN 500 MG TAB PO PRN ×3 (10:30→21:37)
[2020-05-07 13:00] VITALS: BP 126/74
[2020-05-07 16:30] VITALS: BP 129/88
[2020-05-07 22:00] VITALS: BP 149/71
[2020-05-07] MEDS ORDERED: ATORVASTATIN 20 MG TAB PO SCH (22:00)
[2020-05-07] MEDS ORDERED: ASPirin 81 mg TAB PO SCH (22:00)
[2020-05-08 05:00] VITALS: BP 133/76
[2020-05-08] MEDS: THYROID 60 MG TAB PO SCH (06:34)
[2020-05-08] MEDS: FAMOTIDINE 20 MG TAB PO SCH (10:00)
[2020-05-08 10:45] VITALS: BP 133/76
== END 2020-05-08 13:05 | disposition home or self-care (01) | DRG 286 ==
LOC: EEVIPCON 13:25 → ER 13:25 → TELE 18:23 → TELE-CENTR 20:08
PROVIDERS: ADMIT Nurse Practitioner Acute Care; ATTEND Internal Medicine
PROC: 4A023N7 Measurement of Cardiac Sampling and Pressure, Left Heart, Percutaneous Approach (ICD-10-PCS; principal; 2020-05-06)
PROC: B211YZZ Fluoroscopy of Multiple Coronary Arteries using Other Contrast (ICD-10-PCS; 2020-05-06)
PROC: B215YZZ Fluoroscopy of Left Heart using Other Contrast (ICD-10-PCS; 2020-05-06)
DX: R07.89 Other chest pain (principal); I63.40 Cerebral infarction due to embolism of unspecified cerebral artery; E03.9 Hypothyroidism, unspecified; E66.9 Obesity, unspecified; E78.5 Hyperlipidemia, unspecified; H53.2 Diplopia; I10 Essential (primary) hypertension; H49.02 Third [oculomotor] nerve palsy, left eye; Z83.3 Family history of diabetes mellitus; Z88.1 Allergy status to other antibiotic agents; Z88.2 Allergy status to sulfonamides; Z90.49 Acquired absence of other specified parts of digestive tract; Z20.822 Contact with and (suspected) exposure to COVID-19
CPT/HCPCS: 36415; 70450; 70551; 71045; 71275; 78452; 80053; 81001; 82728; 83735; 83880; 84443; 84484; 85025; 85379; 85610; 85730; 86141; 87426; 93005; 93017; 93306; 93458; 93886; 99152; G0378; J0153; J2250; Q9967

== ENCOUNTER → 2020-11-10 | Outpatient (CLI) | payer BC ==
[~2020-11-10] MED LIST changes: +METO25TA93 PO
== END | disposition home or self-care (01) ==
LOC: LAB 10:30
PROVIDERS: ATTEND Physician Assistant
DX: N39.0 Urinary tract infection, site not specified (principal)
CPT/HCPCS: 87086